=== PATIENT | female | born 1985 ===

== ENCOUNTER 2016-08-03 18:52 | Emergency (ER) | payer MEDICAID ==
[2016-08-03 20:01] VITALS: BP 144/74; PULSE 76; RESP 16; TEMP 98; O2SAT 100
--- NOTE | 2016-08-03 21:13 | ED PDOC ---
HPI: Headache Time Seen by Provider: 08/03/16 20:22 Chief Complaint (Nursing): Headache Chief Complaint (Provider): Headache for 1 week, intermittent History Per: Patient History/Exam Limitations: no limitations Onset/Duration Of Symptoms: Days, Waxing/Waning Quality: Sharp, Pressure Preceeding Symptoms: None Associated Symptoms: denies: Photophobia, Blurred Vision, Nausea, Vomiting Additional Complaint(s): Pt states the last week she will get a sudden very sharp strong pain which starts in the back of her head and radiates up the front. Pt states it lasts and few seconds and then pressure remains in the tops of her head for a few minutes. No similar prior to the last week. PT states for the last few months she has feen feeling a "bubbling" feeling in the top inside of her head. No numbness/tingling or weakness. Pt states she has ot taken anything for pain because it has not lasted. Past Medical History Reviewed: Historical Data, Nursing Documentation, Vital Signs Vital Signs: Last Vital Signs Temp 98.0 F 08/03/16 19:57 Pulse 76 08/03/16 19:57 Resp 16 08/03/16 19:57 BP 144/74 08/03/16 19:57 Pulse Ox 100 08/03/16 19:57 - Medical History PMH: No Chronic Diseases - Surgical History Surgical History: No Surg Hx - Family History Family History: States: Unknown Family Hx - Living Arrangements Living Arrangements: With Family - Social History Current smoker - smoking cessation education provided: No Alcohol: Occasional Drugs: Denies - Immunization History Hx Tetanus Toxoid Vaccination: No Hx Influenza Vaccination: No Hx Pneumococcal Vaccination: No - Home Medications Home Medications: Ambulatory Orders Medication Instructions Recorded Eye Drops Redness Relief 15 ml 01/10/13 Amoxicillin/Clavulanate [Augmentin 1 tab PO BID #20 tab 08/03/16 875 MG-125 MG] - Allergies Allergies/Adverse Reactions: Allergies Allergy/AdvReac Type Severity Reaction Status Date / Time seafood Allergy RASH Uncoded 08/03/16 19:57 Review of Systems ROS Statement: Except As Marked, All Systems Reviewed And Found Negative Neurological: Positive for: Headache Physical Exam - Reviewed Nursing Documentation Reviewed: Yes Vital Signs Reviewed: Yes - Physical Exam Appears: Positive for: Well, Non-toxic, No Acute Distress Head Exam: Positive for: ATRAUMATIC, NORMAL INSPECTION, NORMOCEPHALIC Skin: Positive for: Normal Color, Warm, DRY Eye Exam: Positive for: Normal appearance, EOMI, PERRL ENT: Positive for: Normal ENT Inspection Neck: Positive for: Normal, Painless ROM Cardiovascular/Chest: Positive for: Regular Rate, Rhythm Respiratory: Positive for: Normal Breath Sounds. 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 Negative for: Motor/Sensory Deficits, Aphasia, Facial Droop - ECG O2 Sat by Pulse Oximetry: 100 Pulse Ox Interpretation: Normal Medical Decision Making Medical Decision Making: CT normal except sinusitis. Discussed with patient and fu if symptoms persist. Disposition - Clinical Impression Clinical Impression: Headache, Sinusitis - Patient ED Disposition Is Patient to be Admitted: No Counseled Patient/Family Regarding: Diagnosis, Need For Followup, Rx Given - Disposition Referrals: [facility] [Outside] Disposition: Routine/Home Disposition Time: 23:55 Condition: GOOD Prescriptions: Amoxicillin/Clavulanate [Augmentin 875 MG-125 MG] 1 tab PO BID #20 tab Instructions: Sinusitis (ED)
--- NOTE | 2016-08-03 23:38 | CT ---
EXAM: CT Head Without Intravenous Contrast CLINICAL HISTORY: 31 years old, female; Pain; Headache; Other: Intermittant; Additional info: Sharp head pain, pressure x 1 week TECHNIQUE: Axial computed tomography images of the head/brain without intravenous contrast. This CT exam was performed using one or more of the following dose reduction techniques: automated exposure control, adjustment of the mA and/or kV according to patient size, and/or use of iterative reconstruction technique. Coronal reformatted images were created and reviewed. COMPARISON: US - NECK/HEAD SOFT TISSUE 09/04/2015 3:02:51 PM FINDINGS: Brain: No intracranial hemorrhage. No mass. No definite edema. Ventricles: No hydrocephalus. Bones/joints: No acute fracture. Soft tissues: Unremarkable. Sinuses: Bpeg-el-adcmifoa mucosal thickening of frontal, ethmoid sinuses. Mastoid air cells: No mastoid effusion. Orbits: Unremarkable as visualized. IMPRESSION: 1. No acute intracranial abnormality. 2. Sinus disease. 3. Incidental/non-acute findings are described above.
== END 2016-08-03 23:55 | disposition home or self-care (01) ==
LOC: H.ER 18:52
DX: R51 Headache (principal)

== ENCOUNTER 2016-11-07 21:07 | Emergency (ER) | payer MEDICAID ==
[2016-11-07 21:17] VITALS: BP 125/84; PULSE 75; RESP 18; TEMP 98.1; O2SAT 98
--- NOTE | 2016-11-07 21:37 | ED PDOC ---
HPI: General Adult Time Seen by Provider: 11/07/16 21:26 Chief Complaint (Nursing): Abnormal Skin Integrity Chief Complaint (Provider): Rash on Left Shoulder History Per: Patient History/Exam Limitations: no limitations Onset/Duration Of Symptoms: Days (x7) Current Symptoms Are (Timing): Still Present Additional Complaint(s): Monserrat Holt is a 31 year old female that presents to the ED with a rash on her left shoulder. Patient reports that last week she had a surgical procedure done to help remove street segura on her left shoulder 7 days ago. Patient now reports irritation, burning, redness, and inflammation to the area. She denies any fever, chills, swelling, or body aches. She reports that she will go back to her [employer], but is currently experiencing and excessive amount much itching and burning in the area, which prompted her ED visit. Past Medical History Reviewed: Historical Data, Nursing Documentation, Vital Signs Vital Signs: Last Vital Signs Temp 98.1 F 11/07/16 21:14 Pulse 75 11/07/16 21:14 Resp 18 11/07/16 21:14 BP 125/84 11/07/16 21:14 Pulse Ox 98 11/07/16 21:14 - Surgical History Other surgeries: surgical procedure to remove stretch segura on left shoulder, x7 days ago - Family History Family History: States: Unknown Family Hx - Immunization History Hx Tetanus Toxoid Vaccination: No Hx Influenza Vaccination: No Hx Pneumococcal Vaccination: No - Home Medications Home Medications: Ambulatory Orders Medication Instructions Recorded Eye Drops Redness Relief 15 ml 01/10/13 Amoxicillin/Clavulanate [Augmentin 1 tab PO BID #20 tab 08/03/16 875 MG-125 MG] Calamine/Pramoxine [Caladryl] 180 ml TP DAILY #1 bottle 11/07/16 Methylprednisolone [Medrol Dose 4 mg PO DAILY #21 mg 11/07/16 Pack (21 tabs)] Mupirocin 2% Cream [Bactroban 30 gm EXT ONCE #1 tube 11/07/16 Cream] - Allergies Allergies/Adverse Reactions: Allergies Allergy/AdvReac Type Severity Reaction Status Date / Time seafood Allergy RASH Uncoded 08/03/16 19:57 Review of Systems Constitutional: Negative for: Fever, Chills, Weakness Skin: Positive for: Rash (to left shoulder) Physical Exam - Reviewed Nursing Documentation Reviewed: Yes Vital Signs Reviewed: Yes - Physical Exam Appears: Positive for: Non-toxic, No Acute Distress Head Exam: Positive for: ATRAUMATIC, NORMOCEPHALIC Skin: Positive for: Rash (Dermatitis present on left shoulder. Skin is raised, and there is dryness around area of strecth ann removal.No indication of infection, but there is skin inflammation. ). Negative for: Normal Color Cardiovascular/Chest: Positive for: Regular Rate, Rhythm. Negative for: Murmur Respiratory: Positive for: Normal Breath Sounds. Negative for: Wheezing Neurologic/Psych: Positive for: Alert, Oriented - ECG O2 Sat by Pulse Oximetry: 98 (RA) Pulse Ox Interpretation: Normal Medical Decision Making Medical Decision Making: Impression: Contact Dermatitis Plan: * Will give patient Rx for Caladryl, Bacrtoban, and a Medrol Dose pack. Patient is stable for discharge home. Scribe Attestation: Documented by Tamy Silvestre, acting as a scribe for Sharri Cabrera PA-C. Provider Scribe Attestation: All medical record entries made by the Scribe were at my direction and personally dictated by me. I have reviewed the chart and agree that the record accurately reflects my personal performance of the history, physical exam, medical decision making, and the department course for this patient. I have also personally directed, reviewed, and agree with the discharge instructions and disposition. Disposition - Clinical Impression Clinical Impression: Contact dermatitis - Patient ED Disposition Is Patient to be Admitted: No - Disposition Referrals: [facility] [Outside] Disposition: Routine/Home Disposition Time: 21:35 Condition: STABLE Prescriptions: Calamine/Pramoxine [Caladryl] 180 ml TP DAILY #1 bottle Methylprednisolone [Medrol Dose Pack (21 tabs)] 4 mg PO DAILY #21 mg Mupirocin 2% Cream [Bactroban Cream] 30 gm EXT ONCE #1 tube Instructions: Contact Dermatitis (ED)
== END 2016-11-07 22:00 | disposition home or self-care (01) ==
LOC: H.ER 21:07
DX: L25.9 Unspecified contact dermatitis, unspecified cause (principal)

== ENCOUNTER 2016-11-16 19:00 | Emergency (ER) | payer MEDICAID ==
[2016-11-16 19:22] VITALS: BP 122/76; PULSE 78; RESP 90; TEMP 99; O2SAT 98
--- NOTE | 2016-11-16 20:09 | ED PDOC ---
HPI: CCC, URI, Sore Throat Time Seen by Provider: 11/16/16 19:24 Chief Complaint (Nursing): ENT Problem Chief Complaint (Provider): Strep Positive History Per: Patient History/Exam Limitations: no limitations Have you had recent travel within the past 21 days to any of the following countries: [place], [place], [place] or [place]?: No Current Symptoms Are (Timing): Still Present Additional Complaint(s): Monserrat Richards, a 31 year old female, presents to the ED for strep throat. The patient states that she was diagnosed with strep and was given amoxycillin for treatment. She states that she completed the course and 4 days later was diagnosed with strep again. The patient reports that she feels as though she is not getting any better. Past Medical History Reviewed: Historical Data, Nursing Documentation, Vital Signs Vital Signs: Last Vital Signs Temp 99 F 11/16/16 19:17 Pulse 78 11/16/16 19:17 Resp 90 H 11/16/16 19:17 BP 122/76 11/16/16 19:17 Pulse Ox 98 11/16/16 20:16 - Medical History PMH: Asthma - Surgical History Surgical History: No Surg Hx - Family History Family History: States: Unknown Family Hx - Immunization History Hx Tetanus Toxoid Vaccination: No Hx Influenza Vaccination: No Hx Pneumococcal Vaccination: No - Home Medications Home Medications: Ambulatory Orders Medication Instructions Recorded Eye Drops Redness Relief 15 ml 01/10/13 Amoxicillin/Clavulanate [Augmentin 1 tab PO BID #20 tab 08/03/16 875 MG-125 MG] Calamine/Pramoxine [Caladryl] 180 ml TP DAILY #1 bottle 11/07/16 Methylprednisolone [Medrol Dose 4 mg PO DAILY #21 mg 11/07/16 Pack (21 tabs)] Mupirocin 2% Cream [Bactroban 30 gm EXT ONCE #1 tube 11/07/16 Cream] Fexofenadine/Pseudoephedrine 1 each PO BID PRN #12 tab.er.12h 11/16/16 [Flakita-D 12 Hour Tablet] - Allergies Allergies/Adverse Reactions: Allergies Allergy/AdvReac Type Severity Reaction Status Date / Time seafood Allergy RASH Uncoded 08/03/16 19:57 Review of Systems ENT: Positive for: Throat Pain Physical Exam - Reviewed Nursing Documentation Reviewed: Yes Vital Signs Reviewed: Yes - Physical Exam Appears: Positive for: Non-toxic, No Acute Distress Head Exam: Positive for: ATRAUMATIC, NORMAL INSPECTION, NORMOCEPHALIC Skin: Positive for: Normal Color, Warm, Dry Eye Exam: Positive for: Normal appearance, EOMI, PERRL ENT: Positive for: Normal ENT Inspection Neck: Positive for: Normal, Painless ROM, Supple Cardiovascular/Chest: Positive for: Regular Rate, Rhythm, Chest Non Tender. Negative for: Tachycardia Respiratory: Positive for: Normal Breath Sounds. Negative for: Wheezing, Respiratory Distress Gastrointestinal/Abdominal: Positive for: Normal Exam, Bowel Sounds, Soft. Negative for: Tenderness, Guarding, Rebound Back: Positive for: Normal Inspection Extremity: Positive for: Normal ROM, Tenderness. Negative for: Pedal Edema, Deformity, Swelling Neurologic/Psych: Positive for: Alert, Oriented, Gait - ECG O2 Sat by Pulse Oximetry: 98 (RA) Pulse Ox Interpretation: Normal Medical Decision Making Medical Decision Makin Initial Impression: 31 year old female presenting with strep throat Initial Plan: * Rapid strep group A Antigen * Reevaluation Strep (-) IM decadron given for sore throat Flakita-D Rx given for home. Scribe Attestation Documented by Mague Robledo acting as a scribe for Jo Messina PA-C. Scribe Attestation All medical record entries made by the Scribe were at my direction and personally dictated by me. I have reviewed the chart and agree that the record accurately reflects my personal performance of the history, physical exam, medical decision making, and the department course for this patient. I have also personally directed, reviewed, and agree with the discharge instructions and disposition. Disposition - Clinical Impression Clinical Impression: Pharyngitis - Patient ED Disposition Is Patient to be Admitted: No Counseled Patient/Family Regarding: Diagnosis, Need For Followup, Rx Given - Disposition Referrals: [facility] [Outside] Disposition: Routine/Home Disposition Time: 21:05 Condition: GOOD Prescriptions: Fexofenadine/Pseudoephedrine [Flakita-D 12 Hour Tablet] 1 each PO BID PRN #12 tab.er.12h PRN Reason: Cough And Congestion Instructions: Pharyngitis (ED)
== END 2016-11-16 22:10 | disposition home or self-care (01) ==
LOC: H.ER 19:00
DX: J02.0 Streptococcal pharyngitis (principal); J45.909 Unspecified asthma, uncomplicated

== ENCOUNTER 2017-03-17 15:09 | Emergency (ER) | payer MEDICAID ==
[2017-03-17 15:18] VITALS: BP 148/76; PULSE 78; RESP 20; TEMP 98.6; O2SAT 98
--- NOTE | 2017-03-17 15:36 | ED PDOC ---
Lower Extremity Pain/Injury Time Seen by Provider: 03/17/17 15:24 Chief Complaint (Nursing): Lower Extremity Problem/Injury Chief Complaint (Provider): Left Foot Bruising History Per: Patient History/Exam Limitations: no limitations Onset/Duration Of Symptoms: Days (x7-14) Current Symptoms Are (Timing): Still Present Additional Complaint(s): Monserrat Holt is a 31 year old female presenting to the ED for an evaluation of bruising noted to the bottom of her left foot. The patient reports 1-2 weeks prior to arrival she had a splinter in the bottom of her left foot. The patient attempted to remove the splinter and thought she removed all of the splinter. A few days after the patient noticed bruising where the splinter was removed. She denies pain or swelling to her left foot. PMD: None Provided Past Medical History Reviewed: Historical Data, Nursing Documentation, Vital Signs Vital Signs: Last Vital Signs Temp 98.6 F 03/17/17 15:16 Pulse 78 03/17/17 15:16 Resp 20 03/17/17 15:16 BP 148/76 03/17/17 15:16 Pulse Ox 98 03/17/17 15:16 - Medical History PMH: Asthma - Family History Family History: States: Unknown Family Hx - Immunization History Hx Tetanus Toxoid Vaccination: No Hx Influenza Vaccination: No Hx Pneumococcal Vaccination: No - Home Medications Home Medications: Ambulatory Orders Medication Instructions Recorded Eye Drops Redness Relief 15 ml 01/10/13 Amoxicillin/Clavulanate [Augmentin 1 tab PO BID #20 tab 08/03/16 875 MG-125 MG] Calamine/Pramoxine [Caladryl] 180 ml TP DAILY #1 bottle 11/07/16 Methylprednisolone [Medrol Dose 4 mg PO DAILY #21 mg 11/07/16 Pack (21 tabs)] Mupirocin 2% Cream [Bactroban 30 gm EXT ONCE #1 tube 11/07/16 Cream] Fexofenadine/Pseudoephedrine 1 each PO BID PRN #12 tab.er.12h 11/16/16 [Flakita-D 12 Hour Tablet] Clindamycin [Cleocin] 300 mg PO TID #30 cap 03/17/17 - Allergies Allergies/Adverse Reactions: Allergies Allergy/AdvReac Type Severity Reaction Status Date / Time seafood Allergy RASH Uncoded 03/17/17 15:15 Review of Systems ROS Statement: Except As Marked, All Systems Reviewed And Found Negative Musculoskeletal: Positive for: Other (bruising to left foot ). Negative for: Foot Pain (no left foot pain or swelling) Physical Exam - Reviewed Nursing Documentation Reviewed: Yes Vital Signs Reviewed: Yes - Physical Exam Appears: Positive for: Non-toxic, No Acute Distress Head Exam: Positive for: ATRAUMATIC, NORMOCEPHALIC Extremity: Positive for: Other (hematoma noted to plantar surface of left foot at 1st MTP; no streaking or blanching noted). Negative for: Tenderness, Calf Tenderness Neurologic/Psych: Positive for: Alert, Oriented (x3), Other (patient is neurovascularly intact). Negative for: Motor/Sensory Deficits - ECG O2 Sat by Pulse Oximetry: 98 (RA) Pulse Ox Interpretation: Normal Medical Decision Making Medical Decision Making: Time: 15:24 Impression: Hematoma to 1st MTP on left foot Plan: * [RAD] Foot Left 3 Views Routine to rule out foreign body xray : noted on lateral view under 1st MTP-area of luceny ?FB. pt is opting at this time to have outpt f.u [facility] pod[facility]ry. pt given clindamycin and f/u with podiatry. Scribe Attestation: Documented by Krystal Arnlod, acting as a scribe for Sharri Cabrera PA-C. Provider Scribe Attestation: All medical record entries made by the Scribe were at my direction and personally dictated by me. I have reviewed the chart and agree that the record accurately reflects my personal performance of the history, physical exam, medical decision making, and the department course for this patient. I have also personally directed, reviewed, and agree with the discharge instructions and disposition. Disposition - Clinical Impression Clinical Impression: Foreign body foot/toe - Patient ED Disposition Is Patient to be Admitted: No Counseled Patient/Family Regarding: Need For Followup - Disposition Referrals: [facility] [Outside] Disposition: Routine/Home Disposition Time: 15:45 Condition: STABLE Prescriptions: Clindamycin [Cleocin] 300 mg PO TID #30 cap Instructions: Acute Wound Care (ED) Forms: [employer] [facility] ([place])
--- NOTE | 2017-03-17 17:14 | CP.PCM.CON ---
History of Present Illness - History of Present Illness History of Present Illness: 31 year old female presents to the ED for complaint of bilateral foot pain. She states that two [place] and thinks she got some splinters which she admits to pulling out. Today, while she was getting her nails done, she noticed bruising to the bottom of her feet and admits to some numbness to the area. Denies any pain. Denies n/v/f/c/sob/cp. Past Patient History - Past Social History Smoking Status: Unknown If Ever Smoked - PULMONARY Hx Asthma: Yes - PSYCHIATRIC Hx Substance Use: No Meds Home Medications: Home Medication List Medication Instructions Recorded Confirmed Type Clindamycin [Cleocin] 300 mg PO TID #30 cap 03/17/17 Rx Allergies/Adverse Reactions: Allergies Allergy/AdvReac Type Severity Reaction Status Date / Time seafood Allergy RASH Uncoded 03/17/17 15:15 Physical Exam - Constitutional Appears: Well, Non-toxic, No Acute Distress - Extremities Exam Additional comments: Lower extremity focused exam: Vasc: DP and PT pulses palpable 2/4 b/l. CFT < 3 seconds to all digits b/l. No edema noted to feet b/l. Neuro: Gross sensation intact b/l Ortho: No tenderness on palpation to plantar 1st MPJ b/l. Derm: No open lesions noted. Ecchymosis noted to the plantar aspect of 1st MPJ b/l. Calluses noted sub metatarsals 1-4 b/l. - Neurological Exam Neurological exam: Alert, Oriented x3 - Psychiatric Exam Psychiatric exam: Normal Affect, Normal Mood Results - Vital Signs Recent Vital Signs: Last Vital Signs Temp 98.6 F 03/17/17 15:16 Pulse 78 03/17/17 15:16 Resp 20 03/17/17 15:16 BP 148/76 03/17/17 15:16 Pulse Ox 98 03/17/17 15:47 Assessment & Plan - Assessment and Plan (Free Text) Assessment: 31 year old female with ecchymosis to the plantar aspect of the 1st MPJ b/l Plan: patient examined and evaluated discussed in detail with attending, Dr. Parkinson chart, labs, vitals reviewed radiographs reviewed- no signs of foreign body noted patient to wear more supportive shoes patient to f/u with Dr. Parkinson in office
--- NOTE | 2017-03-17 17:19 | RAD ---
PROCEDURE: Left Foot Radiographs. HISTORY: injury ?fb COMPARISON: None. FINDINGS: BONES: No evidence of acute displaced fracture nor dislocation. Osseous structures appear intact. No obvious cortical destructive changes. Tiny posterior calcaneal enthesophyte. JOINTS: Normal. SOFT TISSUES: Soft tissues appear grossly unremarkable without evidence of radiopaque foreign bodies. No subcutaneous emphysema OTHER FINDINGS: None. IMPRESSION: No evidence of acute displaced fracture nor dislocation. No radiopaque foreign bodies or subcutaneous air seen.
--- NOTE | 2017-03-17 17:24 | RAD ---
PROCEDURE: Right Foot Radiographs. HISTORY: foot pain COMPARISON: None. FINDINGS: BONES: No evidence of acute displaced fracture nor dislocation. Osseous structures intact. No cortical destructive changes. Probable small benign bone cyst middle phalanx 3rd toe. . Tiny posterior calcaneal enthesophyte. JOINTS: Normal. SOFT TISSUES: Soft tissues unremarkable without evidence of subcutaneous emphysema or radiopaque foreign bodies. OTHER FINDINGS: None. IMPRESSION: No evidence of acute displaced fracture nor dislocation. Osseous structures appear grossly intact. There are no radiopaque foreign body seen.
== END 2017-03-17 17:33 | disposition home or self-care (01) ==
LOC: H.ER 15:09
DX: S90.859A Superficial foreign body, unspecified foot, initial encounter (principal); Y92.89 Other specified places as the place of occurrence of the external cause; J45.909 Unspecified asthma, uncomplicated

== ENCOUNTER 2017-06-02 18:49 | Emergency (ER) | payer MEDICAID ==
[2017-06-02 19:03] VITALS: BP 140/75; PULSE 81; RESP 20; TEMP 98.9; O2SAT 99
--- NOTE | 2017-06-02 19:52 | ED PDOC ---
Upper Extremity Pain/Injury Time Seen by Provider: 06/02/17 19:01 Chief Complaint (Nursing): Finger,Hand,&Wrist Chief Complaint (Provider): Finger Injury History Per: Patient History/Exam Limitations: no limitations Onset/Duration Of Symptoms: Days (x3) Current Symptoms Are (Timing): Better Additional Complaint(s): 32 year old female presents to ED requesting evaluation of her right 2nd digit on which she sustained a laceration x3 days ago. Patient notes she cut her finger on an aluminum can and notes that her last tetanus shot was 10 years ago. Patient is concerned that she needs stitches. PCP: Non [facility] Past Medical History Reviewed: Historical Data, Nursing Documentation, Vital Signs Vital Signs: Last Vital Signs Temp 98.9 F 06/02/17 19:00 Pulse 81 06/02/17 19:00 Resp 20 06/02/17 19:00 BP 140/75 06/02/17 19:00 Pulse Ox 99 06/02/17 19:00 - Medical History PMH: Asthma - Family History Family History: States: Unknown Family Hx - Immunization History Hx Tetanus Toxoid Vaccination: No Hx Influenza Vaccination: No Hx Pneumococcal Vaccination: No - Home Medications Home Medications: Ambulatory Orders Medication Instructions Recorded Eye Drops Redness Relief 15 ml 01/10/13 Amoxicillin/Clavulanate [Augmentin 1 tab PO BID #20 tab 08/03/16 875 MG-125 MG] Calamine/Pramoxine [Caladryl] 180 ml TP DAILY #1 bottle 11/07/16 Methylprednisolone [Medrol Dose 4 mg PO DAILY #21 mg 11/07/16 Pack (21 tabs)] Mupirocin 2% Cream [Bactroban 30 gm EXT ONCE #1 tube 11/07/16 Cream] Fexofenadine/Pseudoephedrine 1 each PO BID PRN #12 tab.er.12h 11/16/16 [Flakita-D 12 Hour Tablet] Clindamycin [Cleocin] 300 mg PO TID #30 cap 03/17/17 - Allergies Allergies/Adverse Reactions: Allergies Allergy/AdvReac Type Severity Reaction Status Date / Time seafood Allergy Severe RASH Uncoded 06/02/17 18:57 Review of Systems ROS Statement: Except As Marked, All Systems Reviewed And Found Negative Skin: Positive for: Other (Laceration on 2nd digit of right hand) Physical Exam - Reviewed Nursing Documentation Reviewed: Yes Vital Signs Reviewed: Yes - Physical Exam Appears: Positive for: Non-toxic, No Acute Distress Skin: Positive for: Normal Color, Warm, Dry Extremity: Negative for: Other ((+) 0.5 cm superficial linear laceration to the distal aspect of the right 2nd digit. No active bleeding to the area) - ECG O2 Sat by Pulse Oximetry: 99 (RA) Pulse Ox Interpretation: Normal Medical Decision Making Medical Decision Makin Initial impression: delayed presentation finger laceration Initial plan: * Adacel 0.5mL IM Scribe Attestation: Documented by Candace Oseguera, acting as a scribe for Deon Bass PA-C. Provider Scribe Attestation: All medical record entries made by the Scribe were at my direction and personally dictated by me. I have reviewed the chart and agree that the record accurately reflects my personal performance of the history, physical exam, medical decision making, and the department course for this patient. I have also personally directed, reviewed, and agree with the discharge instructions and disposition. Disposition - Clinical Impression Clinical Impression: Finger laceration - Patient ED Disposition Is Patient to be Admitted: No - Disposition Disposition: Routine/Home Disposition Time: 19:45 Condition: STABLE Instructions: Diphtheria/Acellular Pertussis/Tetanus Booster Vaccine (Tdap) ( Injection), Finger Laceration (ED) Forms: [employer] [facility] ([place])
== END 2017-06-02 20:26 | disposition home or self-care (01) ==
LOC: H.ER 18:49
DX: S61.200A Unspecified open wound of right index finger without damage to nail, initial encounter (principal); W26.8XXA Contact with other sharp object(s), not elsewhere classified, initial encounter; Y92.89 Other specified places as the place of occurrence of the external cause; J45.909 Unspecified asthma, uncomplicated

== ENCOUNTER 2017-08-28 19:46 | Emergency (ER) | payer MEDICAID ==
[2017-08-28 19:55] VITALS: BMI 28.0
[2017-08-28 19:57] VITALS: BP 134/90; PULSE 77; RESP 16; TEMP 98.1; O2SAT 97
--- NOTE | 2017-08-28 20:16 | ED PDOC ---
HPI: Allergic Reaction Time Seen by Provider: 08/28/17 20:00 Chief Complaint (Nursing): Allergic Reaction Chief Complaint (Provider): Allergic Reaction History Per: Patient History/Exam Limitations: no limitations Onset/Duration Of Symptoms: Days (x3) Current Symptoms Are (Timing): Still Present Additional Complaint(s): 32 y/o female with a pmhx of asthma presents to the ED for evaluation of skin rash(hives) x3 days. She states her symptoms worsened today prompting her to present to the ED. Reports the only thing different in her routine is [employer] smoothies the past few days. Denies exposure to new lotions, soaps, detergents, or skin products. Patient has been taking Benadryl for her symptoms , but none was taken today. Denies any nausea, vomiting, SOB, facial swelling, dyspnea. Patient endorses no history of prior allergic reactions. PMD: Dr. Duke Brown Past Medical History Reviewed: Historical Data, Nursing Documentation, Vital Signs Vital Signs: Last Vital Signs Temp 98.1 F 08/28/17 19:55 Pulse 77 08/28/17 19:55 Resp 16 08/28/17 19:55 BP 134/90 08/28/17 19:55 Pulse Ox 97 08/28/17 19:55 - Medical History PMH: Asthma - Surgical History Other surgeries: Bilateral arm lift - Family History Family History: States: Unknown Family Hx - Social History Current smoker - smoking cessation education provided: No Alcohol: None Drugs: Denies - Home Medications Home Medications: Ambulatory Orders Medication Instructions Recorded Eye Drops Redness Relief 15 ml 01/10/13 Amoxicillin/Clavulanate [Augmentin 1 tab PO BID #20 tab 08/03/16 875 MG-125 MG] Calamine/Pramoxine [Caladryl] 180 ml TP DAILY #1 bottle 11/07/16 Methylprednisolone [Medrol Dose 4 mg PO DAILY #21 mg 11/07/16 Pack (21 tabs)] Mupirocin 2% Cream [Bactroban 30 gm EXT ONCE #1 tube 11/07/16 Cream] Fexofenadine/Pseudoephedrine 1 each PO BID PRN #12 tab.er.12h 11/16/16 [Flakita-D 12 Hour Tablet] Clindamycin [Cleocin] 300 mg PO TID #30 cap 03/17/17 DiphenhydrAMINE [Benadryl] 25 mg PO Q6 #30 cap 08/28/17 Famotidine [Pepcid] 40 mg PO DAILY #5 tablet 08/28/17 predniSONE [predniSONE Tab] 40 mg PO DAILY #10 tab 08/28/17 - Allergies Allergies/Adverse Reactions: Allergies Allergy/AdvReac Type Severity Reaction Status Date / Time seafood Allergy Severe RASH Uncoded 06/02/17 18:57 Review of Systems ROS Statement: Except As Marked, All Systems Reviewed And Found Negative Skin: Positive for: Rash Physical Exam - Reviewed Nursing Documentation Reviewed: Yes Vital Signs Reviewed: Yes - Physical Exam Comments: GENERAL APPEARANCE: Patient is awake, alert, oriented x 3, in no acute distress. SKIN: (+) scattered hives throughout, (-) surrounding erythema, (-) excoriations , (-) drainage, (-) crusting, (-) evidence of cellulitis. HENT: (-) conjunctival injection, (-) chemosis. Oropharynx: clear (-) tongue or lip swelling, (-) tonsillar exudates, (-) erythema. Airway: patent (-) stridor, (-) hoarseness. Mucous membranes moist. Nares: Patent (-) rhinorrhea. NECK: Supple, FROM (-) lymphadenopathy, (-) tenderness (-) rigidity. CARDIOVASCULAR: Normal rate and rhythm. (-) murmur, (-) gallop. CHEST AND RESPIRATORY: (-) rales, (-) rhonchi, (-) wheezes; breath sounds equal bilaterally. Speaking in full sentences, respirations even and non-labored. ABDOMEN: Soft. (-) tenderness (-) guarding (-) rebound. EXTREMITIES: (-) deformity, (-) edema. NEURO: Mental status as above. 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 Prescriptions: DiphenhydrAMINE [Benadryl] 25 mg PO Q6 #30 cap Famotidine [Pepcid] 40 mg PO DAILY #5 tablet predniSONE [predniSONE Tab] 40 mg PO DAILY #10 tab Instructions: Hives, Food Allergy, Allergy Skin Testing Forms: [employer] (Citizen [place]) Print Language: ALBANIAN - POA Present On Arrival: None Medical Decision Making Medical Decision Makin:09 Initial Impression:Allergic reaction, hives, likely food allergy Plan: --Prednisone 40mg PO --Pepcid 40mg PO --Reevaluation Patient refused Benadryl in ED. 20:40 Patient remains awake, alert, oriented x 3 and is laying in bed comfortably. On exam, neck is supple, lungs are clear, abdomen is soft and non tender, heart is at regular rate and rhythm. Repeat neuro shows no focal findings. Symptoms improved per patient. No evidence of stridor, respiratory distress, or facial swelling. VSS, stable for discharge. Advised to follow up with primary care physician in 1-2 days without fail. Advised to take medication as prescribed. Return to the emergency room at any time for any new or worsening symptoms. Patient states she fully agrees with and understands discharge instructions. States that she agrees with the plan and disposition. Verbalized and repeated discharge instructions and plan. I have given the patient opportunity to ask any additional questions. Scribe Attestation: Documented by Henri Zapata, acting as a scribe for TRISTIAN Perales Provider Scribe Attestation: All medical record entries made by the Scribe were at my direction and personally dictated by me. I have reviewed the chart and agree that the record accurately reflects my personal performance of the history, physical exam, medical decision making, and the department course for this patient. I have also personally directed, reviewed, and agree with the discharge instructions and disposition.
== END 2017-08-28 21:05 | disposition home or self-care (01) ==
LOC: H.ER 19:46
DX: T78.40XA Allergy, unspecified, initial encounter (principal); J45.909 Unspecified asthma, uncomplicated

== ENCOUNTER 2017-09-06 21:03 | Emergency (ER) | payer MEDICAID ==
[2017-09-06 21:03] VITALS: BMI 28.0
[2017-09-06] MEDS ORDERED: PrednisoLONE 15 mg/5 ml Oral Syrup (240 ml) PO STA (22:18)
[2017-09-06] MEDS ORDERED: Albuterol 0.083% Inhal Sol (2.5 mg/3 mL) UD INH ONE (22:22)
[2017-09-06] MEDS ORDERED: Albuterol-Ipratrop 3 mg / 0.5 (3 ml) UD ONE (22:25)
[2017-09-06 22:51] VITALS: BP 133/76; PULSE 74; RESP 18; TEMP 98.2; O2SAT 99
--- NOTE | 2017-09-06 23:38 | ED PDOC ---
HPI: Allergic Reaction Time Seen by Provider: 09/06/17 21:30 Chief Complaint (Nursing): Allergic Reaction Chief Complaint (Provider): Allergic Reaction History Per: Patient History/Exam Limitations: no limitations Onset/Duration Of Symptoms: Hrs Associated Symptoms: Skin Rash (Hands and legs). denies: Swelling Additional Complaint(s): 32 years old female presents to the ED complaining of rash on her hands and legs prior to arrival. Patient states she has been here in the ED on August 28 for the same complaint after drinking smoothie and breaking into rash. She reports she has been taking her medicine as prescribe with improvement, however , symptoms developed again today. Patient states experiencing tightness of throat. She denies any fever, cough or vomiting. PMD: non provided Past Medical History Reviewed: Historical Data, Nursing Documentation, Vital Signs Vital Signs: Last Vital Signs Temp 98.2 F 09/06/17 22:50 Pulse 74 09/06/17 22:50 Resp 18 09/06/17 22:50 BP 133/76 09/06/17 22:50 Pulse Ox 99 09/06/17 22:50 - Medical History PMH: Asthma - Surgical History Surgical History: No Surg Hx - Family History Family History: States: Unknown Family Hx - Social History Current smoker - smoking cessation education provided: No Alcohol: None Drugs: Denies - Immunization History Hx Tetanus Toxoid Vaccination: No Hx Influenza Vaccination: No Hx Pneumococcal Vaccination: No - Home Medications Home Medications: Ambulatory Orders Medication Instructions Recorded Eye Drops Redness Relief 15 ml 01/10/13 Amoxicillin/Clavulanate [Augmentin 1 tab PO BID #20 tab 08/03/16 875 MG-125 MG] Calamine/Pramoxine [Caladryl] 180 ml TP DAILY #1 bottle 11/07/16 Methylprednisolone [Medrol Dose 4 mg PO DAILY #21 mg 11/07/16 Pack (21 tabs)] Mupirocin 2% Cream [Bactroban 30 gm EXT ONCE #1 tube 11/07/16 Cream] Fexofenadine/Pseudoephedrine 1 each PO BID PRN #12 tab.er.12h 11/16/16 [Flakita-D 12 Hour Tablet] Clindamycin [Cleocin] 300 mg PO TID #30 cap 03/17/17 DiphenhydrAMINE [Benadryl] 25 mg PO Q6 #30 cap 08/28/17 Famotidine [Pepcid] 40 mg PO DAILY #5 tablet 08/28/17 predniSONE [predniSONE Tab] 40 mg PO DAILY #10 tab 08/28/17 Famotidine [Pepcid] 20 mg PO BID #10 tab 09/06/17 predniSONE [Prednisone] 40 mg PO DAILY #8 tab 09/06/17 - Allergies Allergies/Adverse Reactions: Allergies Allergy/AdvReac Type Severity Reaction Status Date / Time seafood Allergy Severe RASH Uncoded 06/02/17 18:57 Review of Systems ROS Statement: Except As Marked, All Systems Reviewed And Found Negative Constitutional: Negative for: Fever ENT: Positive for: Throat Pain (tightness). Negative for: Mouth Pain Cardiovascular: Negative for: Chest Pain Respiratory: Negative for: Cough Gastrointestinal: Negative for: Vomiting Skin: Positive for: Rash (on hands and legs) Physical Exam - Reviewed Nursing Documentation Reviewed: Yes Vital Signs Reviewed: Yes - Physical Exam Appears: Positive for: Non-toxic, No Acute Distress Head Exam: Positive for: ATRAUMATIC, NORMOCEPHALIC Skin: Positive for: Rash (Diffused utricarial on hands and legs) ENT: Positive for: Normal ENT Inspection. Negative for: Tonsillar Swelling Cardiovascular/Chest: Positive for: Regular Rate, Rhythm. Negative for: Murmur Respiratory: Positive for: Normal Breath Sounds. Negative for: Wheezing, Respiratory Distress Extremity: Positive for: Normal ROM. Negative for: Swelling Neurologic/Psych: Positive for: Alert, Oriented - ECG O2 Sat by Pulse Oximetry: 99 (RA) Pulse Ox Interpretation: Normal Disposition - Clinical Impression Clinical Impression: Acute allergic reaction - Disposition Referrals: [facility] [Outside] [facility] [place] [Outside] Disposition: Routine/Home Disposition Time: 23:03 Condition: IMPROVED Additional Instructions: follow up with your primary doctor in 1-2 days take benadryl as needed for rash return to the ED with any worsening or concerning symptoms Prescriptions: Famotidine [Pepcid] 20 mg PO BID #10 tab predniSONE [Prednisone] 40 mg PO DAILY #8 tab Instructions: Skin Rash (DC), Hives (DC) Forms: [employer] (Slovenian) Medical Decision Making Medical Decision Making: Time: 2221 Initial Impression: allergic reaction Initial Plan: --Albuterol 0.083% 2.5mg INH --Pepcid 20 mg PO --predniSone 50 mg PO --Peak Flow Pre/Post Tx ____ Time: 2303 Upon reevaluation, patient reports improvement of symptoms and is stable for discharge with a prescription. Scribe Attestation: Documented by Kylee Watts, acting as a scribe for Meliton Richardson MD. Provider Scribe Attestation: All medical record entries made by the Scribe were at my direction and personally dictated by me. I have reviewed the chart and agree that the record accurately reflects my personal performance of the history, physical exam, medical decision making, and the department course for this patient. I have also personally directed, reviewed, and agree with the discharge instructions and disposition.
== END 2017-09-06 23:29 | disposition home or self-care (01) ==
LOC: H.ER 21:03
DX: T78.40XA Allergy, unspecified, initial encounter (principal)

== ENCOUNTER 2017-11-05 13:08 | Emergency (ER) | payer MEDICAID ==
[2017-11-05 13:08] VITALS: BMI 28.0
[2017-11-05 13:27] VITALS: BP 125/80; PULSE 83; RESP 18; TEMP 98.2; O2SAT 98
--- NOTE | 2017-11-05 13:49 | ED PDOC ---
HPI: General Adult Time Seen by Provider: 11/05/17 13:29 Chief Complaint (Nursing): Abnormal Skin Integrity Chief Complaint (Provider): skin irritation History Per: Patient History/Exam Limitations: no limitations Onset/Duration Of Symptoms: Days (x2) Additional Complaint(s): Patient is 32 y/o female who presents to ED with complaint of skin irritation. Patient reports that she saw a make up accredited pharmacy technician this past for a procedure in which a laser was used to improve skin discoloration to her left shoulder; she was unable to describe the type of machine but likened it to a tattoo procedure. 2 days ago she noticed redness and irritation to affected area and topical ointment given to her by the accredited pharmacy technician has made area feel worse (she does not know the name of the ointment she was given). Patient took 2 benadryl last night which did not help. PMD: Duke Brown Past Medical History Reviewed: Historical Data, Nursing Documentation, Vital Signs Vital Signs: Last Vital Signs Temp 98.2 F 11/05/17 13:24 Pulse 83 11/05/17 13:24 Resp 18 11/05/17 13:24 BP 125/80 11/05/17 13:24 Pulse Ox 98 11/05/17 13:55 - Medical History PMH: Asthma - Surgical History Surgical History: No Surg Hx - Family History Family History: States: No Known Family Hx - Living Arrangements Living Arrangements: With Family - Social History Current smoker - smoking cessation education provided: No Alcohol: None Drugs: Denies - Home Medications Home Medications: Ambulatory Orders Medication Instructions Recorded Eye Drops Redness Relief 15 ml 01/10/13 Amoxicillin/Clavulanate [Augmentin 1 tab PO BID #20 tab 08/03/16 875 MG-125 MG] Calamine/Pramoxine [Caladryl] 180 ml TP DAILY #1 bottle 11/07/16 Methylprednisolone [Medrol Dose 4 mg PO DAILY #21 mg 11/07/16 Pack (21 tabs)] Mupirocin 2% Cream [Bactroban 30 gm EXT ONCE #1 tube 11/07/16 Cream] Fexofenadine/Pseudoephedrine 1 each PO BID PRN #12 tab.er.12h 11/16/16 [Flakita-D 12 Hour Tablet] Clindamycin [Cleocin] 300 mg PO TID #30 cap 03/17/17 DiphenhydrAMINE [Benadryl] 25 mg PO Q6 #30 cap 08/28/17 Famotidine [Pepcid] 40 mg PO DAILY #5 tablet 08/28/17 predniSONE [predniSONE Tab] 40 mg PO DAILY #10 tab 08/28/17 Famotidine [Pepcid] 20 mg PO BID #10 tab 09/06/17 predniSONE [Prednisone] 40 mg PO DAILY #8 tab 09/06/17 Prednisone 50 mg PO DAILY #5 tablet 11/05/17 - Allergies Allergies/Adverse Reactions: Allergies Allergy/AdvReac Type Severity Reaction Status Date / Time seafood Allergy Severe RASH Uncoded 11/05/17 13:24 Review of Systems ROS Statement: Except As Marked, All Systems Reviewed And Found Negative Constitutional: Negative for: Fever, Chills Skin: Positive for: Rash (redness and itching left shoulder area), Other ( burning sensation to affected area) Physical Exam - Reviewed Nursing Documentation Reviewed: Yes Vital Signs Reviewed: Yes - Physical Exam Appears: Positive for: Well, Non-toxic, No Acute Distress Head Exam: Positive for: ATRAUMATIC, NORMAL INSPECTION, NORMOCEPHALIC Skin: Positive for: Normal Color, Warm, Rash (Loaclized erythematous lesions with maculopapular rash noted to left anterior shoulder locally, no acute infection) Eye Exam: Positive for: Normal appearance Cardiovascular/Chest: Positive for: Regular Rate, Rhythm Respiratory: Positive for: Normal Breath Sounds Neurologic/Psych: Positive for: Alert, Oriented - Laboratory Results Urine POC: Negative (test refused by patient, she states she is certain she is not ) - ECG O2 Sat by Pulse Oximetry: 98 (RA) Pulse Ox Interpretation: Normal Medical Decision Making Medical Decision Making: Time: 13:42 Initial Impression: Skin irritation s/p laser procedure Initial Plan: --Patient given prednisone 60 mg PO in ED Patient advised to continue with Benadryl or Claritin for itch relief and was given prescription for prednisone. She was strongly advised to follow up as soon as possible with flight security specialist. Scribe Attestation: Documented by German Alvarez, acting as a scribe for Shruti Mccurdy PA-C Provider Scribe Attestation: All medical record entries made by the Scribe were at my direction and personally dictated by me. I have reviewed the chart and agree that the record accurately reflects my personal performance of the history, physical exam, medical decision making, and the department course for this patient. I have also personally directed, reviewed, and agree with the discharge instructions and disposition. Disposition - Clinical Impression Clinical Impression: Skin irritation, Contact dermatitis - Patient ED Disposition Is Patient to be Admitted: No Counseled Patient/Family Regarding: Diagnosis, Need For Followup, Rx Given - Disposition Referrals: Duke Brown MD [Staff Provider] - Disposition: Routine/Home Disposition Time: 14:04 Condition: STABLE Additional Instructions: TAKE RX MEDS DIRECTED ALONG WITH OVER THE COUNTER CLARITIN AND BENADRYL. DO NOT APPLY ANY TOPICAL CREAMS. FOLLOW UP FANG WITH LEVER OPERATOR. Prescriptions: Prednisone 50 mg PO DAILY #5 tablet Instructions: Contact Dermatitis (DC), Skin Rash Forms: [employer] (Icelandic)
== END 2017-11-05 14:32 | disposition home or self-care (01) ==
LOC: H.ER 13:08
DX: L25.9 Unspecified contact dermatitis, unspecified cause (principal)

== ENCOUNTER 2017-12-04 12:07 | Emergency (ER) | payer MEDICAID ==
[2017-12-04 12:07] VITALS: BMI 28.0
[2017-12-04 12:48] VITALS: RESP 18
[2017-12-04] MEDS ORDERED: Sodium Chloride 0.9% 2,000 ML IV STA (12:59)
--- NOTE | 2017-12-04 13:09 | ED PDOC ---
Arrival/HPI - General Chief Complaint: GI Problem Historian: Patient - History of Present Illness Time/Duration: < week (2 days) Past Medical History - Provider Review Nursing Documentation Reviewed: Yes - Pulmonary Hx Asthma: Yes - Psychiatric Hx Substance Use: No - Surgical History Other/Comment: Upper arm surgery - Anesthesia Hx Anesthesia: Yes Hx Anesthesia Reactions: No - Suicidal Assessment Feels Threatened In Home Enviroment: No Family/Social History - Physician Review Nursing Documentation Reviewed: Yes Family/Social History: No Known Family HX Smoking Status: Unknown If Ever Smoked Hx Alcohol Use: No Hx Substance Use: No Allergies/Home Meds Allergies/Adverse Reactions: Allergies seafood Allergy (Severe, Uncoded 12/04/17 12:44) RASH Home Medications: Home Meds Medication Instructions Recorded Confirmed Eye Drops Redness Relief 15 ml 01/10/13 01/10/13 Review of Systems - Review of Systems Respiratory: absent: SOB Cardiovascular: absent: Chest Pain Gastrointestinal: Diarrhea. absent: Nausea, Vomiting Musculoskeletal: absent: Back Pain Skin: absent: Rash Neurological: absent: Headache, Dizziness Physical Exam Vital Signs Temp Pulse Resp BP Pulse Ox 12/04/17 12:45 99.2 F 91 H 18 131/76 100 Medical Decision Making ED Course and Treatment: Impression Diarrhea Plan: * * Reassess and Disposition Progress Scribe Attestation: Documented by David Duggan, acting as a scribe for JONNY Avila. Provider Scribe Attestation: All medical record entries made by the Scribe were at my direction and personally dictated by me. I have reviewed the chart and agree that the record accurately reflects my personal performance of the history, physical exam, medical decision making, and the department course for this patient. I have also personally directed, reviewed, and agree with the discharge instructions and disposition. - Medication Orders Current Medication Orders: Sodium Chloride (Sodium Chloride 0.9%) 2,000 mls @ 1,000 mls/hr IV .Q2H STA Stop: 12/04/17 14:58 Discontinued Medications Famotidine (Pepcid) 20 mg IVP STAT STA Stop: 12/04/17 13:00 Disposition/Present on Arrival - Disposition
--- NOTE | 2017-12-04 13:19 | ED PDOC ---
HPI:Nausea, Vomiting, Diarrhea Time Seen by Provider: 12/04/17 12:55 Chief Complaint (Nursing): GI Problem History Per: Patient History/Exam Limitations: no limitations Onset/Duration Of Symptoms: Days (2) Current Symptoms Are (Timing): Still Present Have you had recent travel within the past 21 days to any of the following countries: [place], [place], [place] or [place]?: No Additional Complaint(s): 32-year-old female, presents to the emergency department with complaints of diarrhea. Patient states she has been experiencing multiple episodes of non- bloody/watery diarrhea for the past two days. Patient states she started taking Amoxicillin for sore throat five days ago, and found out that strep was negative. She denies any travel, tactile fever, sick contacts, nausea/vomiting, back pain, or any other associated symptoms. No other complaints at this time. Past Medical History Reviewed: Historical Data, Nursing Documentation, Vital Signs Vital Signs: Last Vital Signs Temp 99.2 F 12/04/17 12:45 Pulse 91 H 12/04/17 12:45 Resp 18 12/04/17 12:45 BP 131/76 12/04/17 12:45 Pulse Ox 100 12/04/17 12:45 - Medical History PMH: Asthma - Family History Family History: States: No Known Family Hx - Immunization History Hx Tetanus Toxoid Vaccination: No Hx Influenza Vaccination: No Hx Pneumococcal Vaccination: No - Home Medications Home Medications: Ambulatory Orders Medication Instructions Recorded Eye Drops Redness Relief 15 ml 01/10/13 Amoxicillin/Clavulanate [Augmentin 1 tab PO BID #20 tab 08/03/16 875 MG-125 MG] Calamine/Pramoxine [Caladryl] 180 ml TP DAILY #1 bottle 11/07/16 Methylprednisolone [Medrol Dose 4 mg PO DAILY #21 mg 11/07/16 Pack (21 tabs)] Mupirocin 2% Cream [Bactroban 30 gm EXT ONCE #1 tube 11/07/16 Cream] Fexofenadine/Pseudoephedrine 1 each PO BID PRN #12 tab.er.12h 11/16/16 [Flakita-D 12 Hour Tablet] Clindamycin [Cleocin] 300 mg PO TID #30 cap 03/17/17 DiphenhydrAMINE [Benadryl] 25 mg PO Q6 #30 cap 08/28/17 Famotidine [Pepcid] 40 mg PO DAILY #5 tablet 08/28/17 predniSONE [predniSONE Tab] 40 mg PO DAILY #10 tab 08/28/17 Famotidine [Pepcid] 20 mg PO BID #10 tab 09/06/17 predniSONE [Prednisone] 40 mg PO DAILY #8 tab 09/06/17 Prednisone 50 mg PO DAILY #5 tablet 11/05/17 Famotidine [Pepcid] 20 mg PO BID #10 tab 12/04/17 - Allergies Allergies/Adverse Reactions: Allergies Allergy/AdvReac Type Severity Reaction Status Date / Time seafood Allergy Severe RASH Uncoded 12/04/17 12:44 Review of Systems Constitutional: Negative for: Fever Cardiovascular: Negative for: Chest Pain Gastrointestinal: Positive for: Diarrhea. Negative for: Nausea, Vomiting Musculoskeletal: Negative for: Back Pain Skin: Negative for: Rash Neurological: Negative for: Weakness, Numbness, Headache, Dizziness Physical Exam - Reviewed Nursing Documentation Reviewed: Yes Vital Signs Reviewed: Yes - Physical Exam Appears: Positive for: Non-toxic, No Acute Distress Skin: Positive for: Normal Color, Warm, Dry. Negative for: Rash Eye Exam: Positive for: Normal appearance Neck: Positive for: Painless ROM Cardiovascular/Chest: Positive for: Regular Rate, Rhythm Respiratory: Positive for: Normal Breath Sounds. Negative for: Accessory Muscle Use Gastrointestinal/Abdominal: Positive for: Soft. Negative for: Tenderness, Guarding, Rebound Extremity: Positive for: Normal ROM. Negative for: Deformity Neurologic/Psych: Positive for: Alert, Oriented - Laboratory Results Result Diagrams: 12/04/17 13:42 12/04/17 13:42 - ECG O2 Sat by Pulse Oximetry: 100 (RA) Pulse Ox Interpretation: Normal - Progress ED Course And Treament: patient states she feels improved after pepcid and unable to give much stool specimen. Medical Decision Making Medical Decision Making: Impression Diarrhea Plan: * Bloodwork * IVF, Pepcid * Stool Culture, C diff toxin * Reassess and Disposition Progress Scribe Attestation: Documented by David Duggan, acting as a scribe for JONNY Avila. Provider Scribe Attestation: All medical record entries made by the Scribe were at my direction and personally dictated by me. I have reviewed the chart and agree that the record accurately reflects my personal performance of the history, physical exam, medical decision making, and the department course for this patient. I have also personally directed, reviewed, and agree with the discharge instructions and disposition. Disposition - Clinical Impression Clinical Impression: Enteritis - Patient ED Disposition Is Patient to be Admitted: No - Disposition Disposition: Routine/Home Disposition Time: 15:44 Condition: FAIR Prescriptions: Famotidine [Pepcid] 20 mg PO BID #10 tab Instructions: Diarrhea in Adolescents and Adults, Low Fiber Diet Forms: [facility] ED School/Work Excuse
[2017-12-04 14:18] LABS: BASO # 0.1 K/uL (0.0-0.2); BASO % 0.6 % (0.0-2.0); EOS # 0.3 K/uL (0.0-0.7); EOS % 1.8 % (0.0-4.0); HEMOGLOBIN 13.4 g/dL (12.0-16.0); LYMPH # 2.2 K/uL (1.0-4.3); LYMPH % 14.8 % (20.0-40.0); MEAN CORPUSCULAR HGB CONC 34.5 g/dL (33.0-37.0); MEAN PLATELET VOLUME 7.7 fl (7.2-11.7); MONO # 1.5 K/uL (0.0-0.8); MONO % 10.3 % (0.0-10.0); NEUT # 10.7 K/uL (1.8-7.0); NEUT % 72.5 % (50.0-75.0); NRBC % 0.1 % (0.0-0.0); RBC 4.47 Mil/uL (3.80-5.20); RED CELL DISTRIBUTION WIDTH 13.6 % (11.5-14.5); WHITE BLOOD COUNT 14.8 K/uL (4.8-10.8)
[2017-12-04 14:30] LABS: ALB/GLOB RATIO 1.1 (1.0-2.1); ALBUMIN 4.2 g/dL (3.5-5.0); ALT/SGPT 108 U/L (9-52); AST/SGOT 62 U/L (14-36); BLOOD UREA NITROGEN 9 mg/dl (7-17); CALCIUM 9.3 mg/dL (8.4-10.2); GFR AFRICAN-AMERICAN > 60; GFR NON-AFRICAN AMERICAN > 60; LIPASE 56 U/L (23-300)
[2017-12-04 16:26] VITALS: BP 130/78; PULSE 70; TEMP 98.2
[2017-12-05 15:51] VITALS: O2SAT 100
== END 2017-12-04 16:26 | disposition home or self-care (01) ==
LOC: H.ER 12:07
DX: K52.9 Noninfective gastroenteritis and colitis, unspecified (principal); J45.909 Unspecified asthma, uncomplicated
CPT/HCPCS: 80053; 81025; 83690; 83735; 85025; 96361; 96374; 99283; J7030

== ENCOUNTER 2018-06-25 12:50 | Emergency (ER) | payer MEDICAID ==
[2018-06-25 12:51] VITALS: BMI 28.0
[2018-06-25 13:25] VITALS: O2SAT 100
--- NOTE | 2018-06-25 15:26 | ED PDOC ---
HPI: Headache Time Seen by Provider: 06/25/18 13:57 Chief Complaint (Nursing): Headache Chief Complaint (Provider): headache History Per: Patient History/Exam Limitations: no limitations Onset/Duration Of Symptoms: Days (x3 weeks) Current Symptoms Are (Timing): Still Present Pain Scale Rating Of: 9 Quality: Tightness, Pressure Additional Complaint(s): Monserrat Holt is a 33 year old female, with a past medical history of asthma and sinusitis, who presents to the emergency department for evaluation of a headache ongoing for the last x3 weeks. Patient states headache starts at the forehead and radiates to the back of the head. She describes the pain as pressure and tightness, and ranks it a 9/10. Pain comes and goes and is associated with dizziness but none currently. Patient reports similar symptoms in the past but states they never last this long. Patient also notes throat pain and nasal congestion for the last x5 days. She took OTC medications including Tylenol yesterday but none today. She denies any fever, chills, numbness, weakness, nausea, vomit, diarrhea, abdominal pain, cough, congestion, chest pain, shortness of breath or other medical complaints. LMP was on 06/16/18. PMD: [facility] Past Medical History Reviewed: Historical Data, Nursing Documentation, Vital Signs Vital Signs: Last Vital Signs Temp 98.6 F 06/25/18 13:23 Pulse 88 06/25/18 13:23 Resp 18 06/25/18 13:23 BP 129/77 06/25/18 13:23 Pulse Ox 100 06/25/18 13:23 - Medical History PMH: Asthma - Surgical History Surgical History: No Surg Hx - Family History Family History: States: Unknown Family Hx - Home Medications Home Medications: Ambulatory Orders Medication Instructions Recorded Eye Drops Redness Relief 15 ml 01/10/13 Amoxicillin/Clavulanate [Augmentin 1 tab PO BID #20 tab 08/03/16 875 MG-125 MG] Calamine/Pramoxine [Caladryl] 180 ml TP DAILY #1 bottle 11/07/16 Methylprednisolone [Medrol Dose 4 mg PO DAILY #21 mg 11/07/16 Pack (21 tabs)] RX: Mupirocin 2% Cream [Bactroban 30 gm EXT ONCE #1 tube 11/07/16 Cream] Fexofenadine/Pseudoephedrine 1 each PO BID PRN #12 tab.er.12h 11/16/16 [Flakita-D 12 Hour Tablet] Clindamycin [Cleocin] 300 mg PO TID #30 cap 03/17/17 DiphenhydrAMINE [Benadryl] 25 mg PO Q6 #30 cap 08/28/17 Famotidine [Pepcid] 40 mg PO DAILY #5 tablet 08/28/17 RX: predniSONE [predniSONE Tab] 40 mg PO DAILY #10 tab 08/28/17 Famotidine [Pepcid] 20 mg PO BID #10 tab 09/06/17 predniSONE [Prednisone] 40 mg PO DAILY #8 tab 09/06/17 RX: Prednisone 50 mg PO DAILY #5 tablet 11/05/17 Famotidine [Pepcid] 20 mg PO BID #10 tab 12/04/17 Amoxicillin/Clavulanate [Augmentin 1 tab PO BID #14 tab 06/25/18 875 MG-125 MG] Fluticasone Nasal [Flonase] 1 actuation NS DAILY #1 unit 06/25/18 RX: Naproxen 500 mg PO BID PRN #20 tab 06/25/18 - Allergies Allergies/Adverse Reactions: Allergies Allergy/AdvReac Type Severity Reaction Status Date / Time seafood Allergy Severe RASH Uncoded 06/25/18 13:22 Review of Systems ROS Statement: Except As Marked, All Systems Reviewed And Found Negative Constitutional: Negative for: Fever, Chills ENT: Positive for: Nose Congestion, Throat Pain Cardiovascular: Negative for: Chest Pain Respiratory: Negative for: Cough, Shortness of Breath Gastrointestinal: Negative for: Nausea, Vomiting, Abdominal Pain, Diarrhea Neurological: Positive for: Headache. Negative for: Weakness, Numbness, Dizzine ss Physical Exam - Reviewed Nursing Documentation Reviewed: Yes Vital Signs Reviewed: Yes - Physical Exam Comments: GENERAL APPEARANCE: Patient is awake, alert, oriented x 3, in no acute distress. Resting comfortably. SKIN: Warm, dry; (-) cyanosis; (-) rash. HEAD: (-) scalp swelling or tenderness, (-) temporal artery tenderness. EYES: (-) conjunctival injection ENMT: Pharynx: clear, uvula midline (+) faint erythema, (-) exudates, (-) sinus tenderness; mucous membranes are moist. TMs (-) bulging, (-) erythema. Nares: (+) rhinorrhea. NECK: Supple, FROM (-) tenderness, (-) stiffness, (-) meningismus, (-) lymphadenopathy. CHEST AND RESPIRATORY: (-) rales, (-) rhonchi, (-) wheezes; breath sounds equal bilaterally. Respirations even and nonlabored. HEART AND CARDIOVASCULAR: (-) irregularity ABDOMEN AND GI: Soft; (-) tenderness. EXTREMITIES: (-) deformity. NEURO AND PSYCH: Mental status as above. 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 Strength and sensation symmetric. Gait: steady. Speech: clear. Cerebellar tests normal. - Laboratory Results Urine POC: Negative - ECG O2 Sat by Pulse Oximetry: 100 (RA) Pulse Ox Interpretation: Normal Medical Decision Making Medical Decision Making: Time: 13:55 Initial Impression: Headache, congestion, and throat pain Initial Plan: --Head w/o contrast [CT] --Urine --Tylenol 325mg tab 650 mg PO --Throat culture --Rapid Strep Group A Antigen --Reevaluation [address] reviewed, radiology report follows Date of service: 06/25/2018 PROCEDURE: CT HEAD WITHOUT CONTRAST. HISTORY: Headache x 3 weeks, intermittent dizziness COMPARISON: Comparison made with prior CT scan of the brain 08/03/2016 TECHNIQUE: Axial computed tomography images were obtained through the head/brain without intravenous contrast. Radiation dose: Total exam DLP = 722.84 mGy-cm. This CT exam was performed using one or more of the following dose reduction techniques: Automated exposure control, adjustment of the mA and/or kV according to patient size, and/or use of iterative reconstruction technique. FINDINGS: HEMORRHAGE: No acute parenchymal, subarachnoid or extra-axial hemorrhage. BRAIN: No mass effect or edema. No atrophy or chronic microvascular ischemic changes. VENTRICLES: No obstructive hydrocephalus. CALVARIUM: Unremarkable. PARANASAL SINUSES: Redemonstrated are mild mucosal thickening changes within multiple ethmoid air cells extending superiorly into the frontal sinus.. MASTOID AIR CELLS: Head without unremarkable as visualized. No inflammatory changes. OTHER FINDINGS: None. IMPRESSION: No acute intracranial hemorrhage. Mild mucosal thickening within the ethmoid and frontal sinuses. In light of CT results, Augmentin 875mg PO ordered. Pending Rapid Strep result. 1645 Rapid Strep: negative On re-evaluation, patient reports improvement of symptoms. On exam, patient remains AAOx3, in no acute distress. Vitals stable. Lab/Diagnostic results d/w the patient in great detail. Diagnosis of sinusitis, acute sinus headache, throat pain d/w the patient. Based on history, exam and diagnostic results, plan will be for outpatient follow up with PMD/clinic. Patient instructed to follow-up with pmd / referral provided / the clinic in 1- 2 days without fail. Advised to take medication as prescribed. Return to the emergency room at any time for any new or worsening symptoms. Patient states she fully agrees with and understands discharge instructions. States that she agrees with the plan and disposition. Verbalized and repeated discharge instructions and plan. I have given the patient opportunity to ask any additional questions. Scribe Attestation: Documented by Adilson Tabares, acting as a scribe for Veronika Quezada PA-C. Provider Scribe Attestation: All medical record entries made by the Scribe were at my direction and personally dictated by me. I have reviewed the chart and agree that the record accurately reflects my personal performance of the history, physical exam, medical decision making, and the department course for this patient. I have also personally directed, reviewed, and agree with the discharge instructions and disposition. Disposition - Clinical Impression Clinical Impression: Sinus headache, Sinusitis, Throat pain in adult - Patient ED Disposition Is Patient to be Admitted: No Counseled Patient/Family Regarding: Studies Performed, Diagnosis, Need For Followup, Rx Given - Disposition Referrals: Duke Brown MD [Family Provider] - Disposition: Routine/Home Disposition Time: 16:45 Condition: STABLE Additional Instructions: The emergency medical care you received today was directed at your acute symptoms. If you were prescribed any medication, please fill it and take as directed. It may take several days for your symptoms to resolve. Return to the Emergency Department if your symptoms worsen, do not improve, or if you have any other problems. Please contact your doctor in 2 days for re-evaluation and follow up / or call one of the physicians/clinics you have been referred to that are listed on the Patient Visit Information form that is included in your discharge packet. Bring any paperwork you were given at discharge with you along with any medications you are taking to your follow up visit. Our treatment cannot replace ongoing medical care by a primary care provider (PCP) outside of the emergency department. Prescriptions: Amoxicillin/Clavulanate [Augmentin 875 MG-125 MG] 1 tab PO BID #14 tab Fluticasone Nasal [Flonase] 1 actuation NS DAILY #1 unit RX: Naproxen 500 mg PO BID PRN #20 tab PRN Reason: Headache Instructions: Sinusitis in Adults, Sore Throat, Adult (DC), Sinus Headache (DC) Forms: Geddit (Divehi) Print Language: ICELANDIC - POA Present On Arrival: None Results - Diagnostic Imaging Results Radiology Results Head CT 06/25/18 14:33 IMPRESSION: No acute intracranial hemorrhage. Mild mucosal thickening within the ethmoid and frontal sinuses. - Lab Results Lab Results: 06/25/18 15:25 Grp A Beta Strep Ag Negative
--- NOTE | 2018-06-25 16:10 | CT ---
Date of service: 06/25/2018 PROCEDURE: CT HEAD WITHOUT CONTRAST. HISTORY: Headache x 3 weeks, intermittent dizziness COMPARISON: Comparison made with prior CT scan of the brain 08/03/2016 TECHNIQUE: Axial computed tomography images were obtained through the head/brain without intravenous contrast. Radiation dose: Total exam DLP = 722.84 mGy-cm. This CT exam was performed using one or more of the following dose reduction techniques: Automated exposure control, adjustment of the mA and/or kV according to patient size, and/or use of iterative reconstruction technique. FINDINGS: HEMORRHAGE: No acute parenchymal, subarachnoid or extra-axial hemorrhage. BRAIN: No mass effect or edema. No atrophy or chronic microvascular ischemic changes. VENTRICLES: No obstructive hydrocephalus. CALVARIUM: Unremarkable. PARANASAL SINUSES: Redemonstrated are mild mucosal thickening changes within multiple ethmoid air cells extending superiorly into the frontal sinus.. MASTOID AIR CELLS: Head without unremarkable as visualized. No inflammatory changes. OTHER FINDINGS: None. IMPRESSION: No acute intracranial hemorrhage. Mild mucosal thickening within the ethmoid and frontal sinuses.
[2018-06-25] MEDS ORDERED: Amoxicillin-Clav 875-125 mg Tab PO STA (16:21)
[2018-06-25] MEDS ORDERED: Amoxicillin-Clav 875-125 mg Tab PO ONE (16:35)
[2018-06-25 17:13] VITALS: BP 122/87; PULSE 78; RESP 20; TEMP 98.1
== END 2018-06-25 17:10 | disposition home or self-care (01) ==
LOC: H.ER 12:50
DX: J01.90 Acute sinusitis, unspecified (principal)